=== PATIENT | male | born 1960 | race Caucasian/White ===

== ENCOUNTER 2016-08-20 12:09 | Emergency (ER) | payer OTHER ==
[~2016-08-20] VITALS: Ht 167.6 cm; Wt 108.2 kg
[~2016-08-20 12:09] MED LIST: NOHOMEMEDS
[2016-08-20] MEDS ORDERED: GLUCOPHAGE1000 MG PO (13:03)
[2016-08-20 13:14] LABS: POINT-OF-CARE METER ID UU13113800
[2016-08-20] MEDS ORDERED: BACTRIM,SEPT1 TABLET PO (13:59)
[2016-08-20 14:20] VITALS: BP 130/78
== END 2016-08-20 14:21 | disposition home or self-care (01) ==
LOC: EME 12:09
PROVIDERS: Physician Assistant
PROC: 0H98XZZ Drainage of Buttock Skin, External Approach (ICD-10-PCS; principal; 2016-08-20)
DX: L02.31 Cutaneous abscess of buttock (principal)
CPT/HCPCS: 82948; 99281; 99284

== ENCOUNTER 2016-08-22 06:40 | Emergency (ER) | payer OTHER ==
[~2016-08-22] VITALS: Ht 175.3 cm; Wt 108.6 kg
[~2016-08-22 06:40] MED LIST changes: +BACTRIM,SEPT1 TABLET PO; +GLUCOPHAGE1000 MG PO
[2016-08-22 07:03] VITALS: BP 129/87
== END 2016-08-22 07:05 | disposition home or self-care (01) ==
LOC: EME 06:40
DX: Z48.01 Encounter for change or removal of surgical wound dressing (principal)
CPT/HCPCS: 99281; 99283